=== PATIENT | female | born 1945 | race Caucasian/White ===

== ENCOUNTER 2018-09-28 15:36 | Inpatient (IN) ==
[2018-09-28] MEDS ORDERED: 0.9 % Sodium Chloride 1,000 ML IVC ONE (16:23)
[2018-09-28] MEDS ORDERED: Gadolinium Contrast Agent (WT Based) IV PRN (16:33)
[2018-09-28 16:54] LABS: Basophils % 0.8 %; Hematocrit 31.4 % (35.3-44.9); Hemoglobin 11.1 g/dL (11.5-15.4); Immature Granulocytes % 1.7 % (0-4); Lymphocytes # 0.1 K/mcL (0.6-4.6); Mean Corpuscular HGB Conc 35.4 g/dL (31.6-35.5); Mean Corpuscular Hemoglobin 34.9 pg (28.0-33.3); Mean Corpuscular Volume 98.7 fL (83.0-100.0); Mean Platelet Volume 9.3 fL (9.4-12.4); Monocytes % 1.7 %; Platelet Count 163 K/mcL (140-400); Red Blood Count 3.18 M/mcL (3.82-4.97); Red Cell Distribution Width 15.7 % (11.5-14.5); Segmented Neutrophils % 84.8 %; White Blood Count 1.2 K/mcL (4.3-11.1)
[2018-09-28 17:01] LABS: INR 1.1; Prothrombin Time 12.4 Seconds (9.4-12.1)
[2018-09-28 17:04] LABS: Activated Partial Thrombo Time 24.7 Seconds (26.0-36.0)
[2018-09-28 17:11] LABS: Bilirubin,Urine Small (Negative); Blood,Urine Small (Negative); Clarity,Urine Cloudy (Clear); Color,Urine Dark Yellow (Yellow); Glucose,Urine (UA) Normal (Normal); Ketones,Urine 40 mg/dL (Negative); Leukocyte Esterase,Urine Large (Negative); Nitrite,Urine Negative (Negative); PH,Urine 5.5 pH Units (5.0-8.0); Protein,Urine 30 mg/dL (Neg-Trace); Specific Gravity,Urine 1.029 (1.010-1.025); Urobilinogen,Urine Normal (Normal)
[2018-09-28 17:13] LABS: Bacteria,Urine None Seen per hpf (None-Few); Squamous Epithelial Cell,Urine Many per lpf (None-Few); WBC,Urine 50-100 per hpf (0-3)
[2018-09-28 17:20] LABS: Alanine Aminotransferase 41 Units/L (7-52); Albumin 4.4 g/dL (3.5-5.7); Albumin/Globulin Ratio 2.1 (1.1-2.2); Alkaline Phosphatase 59 Units/L (34-104); Aspartate Amino Transferase 26 Units/L (13-39); BUN/Creatinine Ratio 36 (6-26); Bilirubin,Direct 0.3 mg/dL (0.0-0.2); Bilirubin,Indirect 0.7 mg/dL (0.0-1.2); Blood Urea Nitrogen 21 mg/dL (8-23); Calcium 9.4 mg/dL (8.6-10.3); Carbon Dioxide 26 mEq/L (23-29); Chloride 95 mEq/L (98-107); Globulin 2.1 g/dL (2.4-3.5); Glucose 174 mg/dL (70-105); Lactate Dehydrogenase 133 Units/L (140-271); Magnesium 1.8 mg/dL (1.6-2.6); Osmolality,Calculated 281 (280-300); Phosphorous 2.4 mg/dL (2.7-4.5); Platelet Estimate Normal (Normal); Potassium 3.1 mEq/L (3.5-5.1); Sodium 132 mEq/L (136-145); Total Protein 6.5 g/dL (6.4-8.9); Troponin I < 0.03 ng/mL (< 0.04); Uric Acid 4.5 mg/dL (2.3-7.6); eGFR For African Americans > 60 (> 60); eGFR For Non-African Americans > 60 (> 60)
[2018-09-28] MEDS ORDERED: *HR* LORazepam 2 MG/ML VIAL IVP ONE (18:43)
[2018-09-28] MEDS ORDERED: *HR* HYDROmorphone (PF) 1 MG/ML SYRINGE IVP PRN (21:28)
[2018-09-28] MEDS ORDERED: Ketamine *HR* 20 MG in 0.9 % Sodium Chloride 100 ML IVPB ONE (21:28)
[2018-09-29] MEDS ORDERED: Ondansetron 4 MG/2 ML VIAL IVP PRN (05:27)
[2018-09-29] MEDS ORDERED: Naloxone 0.4 MG/ML INJ IVP PRN (05:27)
[2018-09-29] MEDS ORDERED: D5% in Water 1,000 ML IVC PRN (05:32)
[2018-09-29] MEDS ORDERED: *HR* Dextrose 50 % in Water (Syg) 50 ML SYRINGE IVP PRN (05:32)
[2018-09-29] MEDS ORDERED: Dextrose Gel 15 GM/37.5 ML TUBE PO PRN ×2 (05:32)
[2018-09-29] MEDS ORDERED: cefTRIAXone 2,000 MG in Water for inj. (sterile) 20 ML IVP SCH (06:00)
[2018-09-29] MEDS: Acetaminophen 325 MG TABLET PO PRN ×2 (07:40→21:47)
[2018-09-29] MEDS: metroNIDAZOLE 500 MG TABLET PO SCH ×3 (07:40→20:16)
[2018-09-29] MEDS: 0.9 % Sodium Chloride w KCl 20 MEQ/1,000 ML MLS IVC SCH ×2 (07:43→18:24)
[2018-09-29] MEDS ORDERED: *HR* LORazepam 0.5 MG TABLET PO ONE (08:58)
[2018-09-29] MEDS: Loratadine 10 MG TABLET PO SCH (10:01)
[2018-09-29] MEDS: Gabapentin 300 MG CAPSULE PO SCH ×3 (10:01→20:17)
[2018-09-29] MEDS: Lactobacillus 1 EACH CAP.SPRINK PO SCH (10:02)
[2018-09-29] MEDS: Insulin LISPRO 300 UNITS/3 ML VIAL SQ SCH ×3 (10:02→18:20)
[2018-09-29 11:00] LABS: Estimated Average Glucose 120 mg/dl
[2018-09-29] MEDS ORDERED: Acetaminophen IV 1,000 MG/100 ML INFUS..BTL IVPB ONE (22:35)
[2018-09-30] MEDS: Cefepime HCl 2,000 MG in Water for inj. (sterile) 20 ML IVP SCH ×2 (00:03→09:35)
[2018-09-30 03:27] LABS: Eosinophils % 1.6 %; Red Blood Count 2.76 M/mcL (3.82-4.97)
[2018-09-30 03:28] LABS: Basophils % 0.8 %; Hematocrit 28.6 % (35.3-44.9); Hemoglobin 9.8 g/dL (11.5-15.4); Lymphocytes # 0.4 K/mcL (0.6-4.6); Mean Corpuscular HGB Conc 34.3 g/dL (31.6-35.5); Mean Corpuscular Hemoglobin 35.5 pg (28.0-33.3); Mean Corpuscular Volume 103.6 fL (83.0-100.0); Mean Platelet Volume 9.3 fL (9.4-12.4); Monocytes # 0.1 K/mcL (0.0-1.3); Monocytes % 4.9 %; Neutrophils # 0.7 K/mcL (1.6-8.9); Platelet Count 136 K/mcL (140-400); Red Cell Distribution Width 15.9 % (11.5-14.5); Segmented Neutrophils % 57.7 %; White Blood Count 1.2 K/mcL (4.3-11.1)
[2018-09-30 03:47] LABS: Alanine Aminotransferase 65 Units/L (7-52); Albumin 3.7 g/dL (3.5-5.7); Albumin/Globulin Ratio 1.9 (1.1-2.2); Alkaline Phosphatase 54 Units/L (34-104); Aspartate Amino Transferase 32 Units/L (13-39); BUN/Creatinine Ratio 28 (6-26); Bilirubin,Total 0.6 mg/dL (0.3-1.0); Blood Urea Nitrogen 14 mg/dL (8-23); Calcium 8.5 mg/dL (8.6-10.3); Carbon Dioxide 25 mEq/L (23-29); Chloride 105 mEq/L (98-107); Globulin 1.9 g/dL (2.4-3.5); Glucose 115 mg/dL (70-105); Magnesium 1.8 mg/dL (1.6-2.6); Osmolality,Calculated 289 (280-300); Potassium 3.2 mEq/L (3.5-5.1); Sodium 139 mEq/L (136-145); Total Protein 5.6 g/dL (6.4-8.9); eGFR For African Americans > 60 (> 60); eGFR For Non-African Americans > 60 (> 60)
[2018-09-30 05:19] LABS: Microcytosis Present (Not Present); Platelet Estimate Normal (Normal)
[2018-09-30 05:20] LABS: Anisocytosis 1+ (Not Present)
[2018-09-30] MEDS: Insulin LISPRO 300 UNITS/3 ML VIAL SQ SCH ×3 (08:16→17:27)
[2018-09-30] MEDS ORDERED: Aminoglycoside Consult 1 EACH MC ONE (08:46)
[2018-09-30] MEDS: Loratadine 10 MG TABLET PO SCH (09:36)
[2018-09-30] MEDS: Lactobacillus 1 EACH CAP.SPRINK PO SCH (09:36)
[2018-09-30] MEDS: Gabapentin 300 MG CAPSULE PO SCH ×3 (09:36→21:11)
[2018-09-30] MEDS: metroNIDAZOLE 500 MG TABLET PO SCH (09:36)
[2018-09-30] MEDS ORDERED: Acetaminophen IV 1,000 MG/100 ML INFUS..BTL IVPB ONE (12:19)
[2018-09-30] MEDS: cephALEXin 500 MG CAPSULE PO SCH ×3 (14:08→21:11)
[2018-09-30] MEDS: *HR* OxyCODONE/APAP 7.5/325 TABLET PO PRN (19:13)
[2018-09-30] MEDS ORDERED: Acetaminophen IV 500 MG/50 ML INFUS..BTL IVPB ONE (21:11)
[2018-10-01] MEDS: *HR* OxyCODONE/APAP 7.5/325 TABLET PO PRN ×5 (02:38→21:12)
[2018-10-01 02:41] LABS: Mean Platelet Volume 9.1 fL (9.4-12.4); Red Cell Distribution Width 15.9 % (11.5-14.5)
[2018-10-01 02:42] LABS: Hematocrit 29.9 % (35.3-44.9); Hemoglobin 10.2 g/dL (11.5-15.4); Mean Corpuscular HGB Conc 34.1 g/dL (31.6-35.5); Mean Corpuscular Hemoglobin 34.9 pg (28.0-33.3); Mean Corpuscular Volume 102.4 fL (83.0-100.0); Platelet Count 150 K/mcL (140-400); Red Blood Count 2.92 M/mcL (3.82-4.97); White Blood Count 1.2 K/mcL (4.3-11.1)
[2018-10-01 03:00] LABS: BUN/Creatinine Ratio 18 (6-26); Blood Urea Nitrogen 10 mg/dL (8-23); Calcium 8.7 mg/dL (8.6-10.3); Carbon Dioxide 26 mEq/L (23-29); Chloride 107 mEq/L (98-107); Glucose 120 mg/dL (70-105); Osmolality,Calculated 290 (280-300); Potassium 3.4 mEq/L (3.5-5.1); Sodium 140 mEq/L (136-145); eGFR For African Americans > 60 (> 60); eGFR For Non-African Americans > 60 (> 60)
[2018-10-01] MEDS: Insulin LISPRO 300 UNITS/3 ML VIAL SQ SCH ×3 (08:31→17:25)
[2018-10-01] MEDS: Gabapentin 300 MG CAPSULE PO SCH ×3 (08:49→21:12)
[2018-10-01] MEDS: cephALEXin 500 MG CAPSULE PO SCH ×4 (08:49→21:12)
[2018-10-01] MEDS: Loratadine 10 MG TABLET PO SCH (08:49)
[2018-10-01] MEDS: Lactobacillus 1 EACH CAP.SPRINK PO SCH (08:49)
[2018-10-01] MEDS: Vancomycin Oral Soln 125 MG/2.5 ML UDC PO SCH ×4 (08:49→21:12)
[2018-10-02] MEDS: *HR* OxyCODONE/APAP 7.5/325 TABLET PO PRN ×6 (01:59→22:04)
[2018-10-02 05:16] LABS: Hemoglobin 10.6 g/dL (11.5-15.4); Red Cell Distribution Width 15.9 % (11.5-14.5)
[2018-10-02 05:18] LABS: Hematocrit 30.5 % (35.3-44.9); Mean Corpuscular HGB Conc 34.8 g/dL (31.6-35.5); Mean Corpuscular Hemoglobin 36.1 pg (28.0-33.3); Mean Corpuscular Volume 103.7 fL (83.0-100.0); Mean Platelet Volume 9.5 fL (9.4-12.4); Platelet Count 170 K/mcL (140-400); Red Blood Count 2.94 M/mcL (3.82-4.97); White Blood Count 1.3 K/mcL (4.3-11.1)
[2018-10-02 05:35] LABS: BUN/Creatinine Ratio 20 (6-26); Blood Urea Nitrogen 12 mg/dL (8-23); Carbon Dioxide 30 mEq/L (23-29); Chloride 103 mEq/L (98-107); Glucose 133 mg/dL (70-105); Osmolality,Calculated 296 (280-300); Potassium 3.2 mEq/L (3.5-5.1); Sodium 142 mEq/L (136-145); eGFR For African Americans > 60 (> 60); eGFR For Non-African Americans > 60 (> 60)
[2018-10-02] MEDS: Loratadine 10 MG TABLET PO SCH (08:32)
[2018-10-02] MEDS: cephALEXin 500 MG CAPSULE PO SCH ×4 (08:32→20:40)
[2018-10-02] MEDS: Lactobacillus 1 EACH CAP.SPRINK PO SCH (08:32)
[2018-10-02] MEDS: Vancomycin Oral Soln 125 MG/2.5 ML UDC PO SCH ×4 (08:32→20:41)
[2018-10-02] MEDS: Gabapentin 300 MG CAPSULE PO SCH ×3 (08:32→20:40)
[2018-10-02] MEDS: Insulin LISPRO 300 UNITS/3 ML VIAL SQ SCH ×3 (08:33→16:25)
[2018-10-02] MEDS ORDERED: Acetaminophen IV 1,000 MG/100 ML INFUS..BTL IVPB ONE (14:52)
[2018-10-03] MEDS: *HR* OxyCODONE/APAP 7.5/325 TABLET PO PRN ×2 (02:35→06:26)
[2018-10-03 03:48] LABS: Hematocrit 33.5 % (35.3-44.9); Hemoglobin 11.6 g/dL (11.5-15.4); Mean Corpuscular HGB Conc 34.6 g/dL (31.6-35.5); Mean Corpuscular Hemoglobin 36.3 pg (28.0-33.3); Mean Corpuscular Volume 104.7 fL (83.0-100.0); Mean Platelet Volume 9.4 fL (9.4-12.4); Platelet Count 171 K/mcL (140-400); Red Cell Distribution Width 15.9 % (11.5-14.5); White Blood Count 1.5 K/mcL (4.3-11.1)
[2018-10-03 03:59] LABS: BUN/Creatinine Ratio 28 (6-26); Blood Urea Nitrogen 17 mg/dL (8-23); Calcium 9.5 mg/dL (8.6-10.3); Carbon Dioxide 24 mEq/L (23-29); Chloride 104 mEq/L (98-107); Glucose 222 mg/dL (70-105); Osmolality,Calculated 292 (280-300); Potassium 3.8 mEq/L (3.5-5.1); Sodium 137 mEq/L (136-145); eGFR For African Americans > 60 (> 60); eGFR For Non-African Americans > 60 (> 60)
[2018-10-03 06:32] VITALS: BP 136/64
[2018-10-03] MEDS: Insulin LISPRO 300 UNITS/3 ML VIAL SQ SCH (07:42)
[2018-10-03] MEDS: Gabapentin 300 MG CAPSULE PO SCH (07:43)
[2018-10-03] MEDS: Lactobacillus 1 EACH CAP.SPRINK PO SCH (07:44)
[2018-10-03] MEDS: cephALEXin 500 MG CAPSULE PO SCH (07:44)
[2018-10-03] MEDS: Vancomycin Oral Soln 125 MG/2.5 ML UDC PO SCH (07:44)
[2018-10-03] MEDS: Loratadine 10 MG TABLET PO SCH (07:44)
== END 2018-10-03 10:00 | disposition home or self-care (01) | DRG 689 ==
LOC: EMEROOARM 15:36 → 3BNU 15:36
PROVIDERS: ADMIT Pediatrics; ATTEND Pediatrics